=== PATIENT | male | born 1970 | race Caucasian/White ===

== ENCOUNTER 2018-07-04 06:51 | Day surgery (SDC) ==
[2018-07-04] MEDS: BETADINE OPTH PREP OP PRN ×2 (07:15→08:00)
[2018-07-04] MEDS: CYCLOGYL 2% OPTH OP PRN ×3 (07:16→07:26)
[2018-07-04] MEDS ORDERED: LIDOCAINE 1% 20 ML MDV ID STA (07:21)
[2018-07-04] MEDS ORDERED: DEX-MOXI-KETOR OPTH INJ 1/0.5/0.4 MG/ML IO ONE (07:21)
[2018-07-04] MEDS ORDERED: TETRACAINE 0.5% UNIT-DOSE OP PRN (07:21)
[2018-07-04] MEDS ORDERED: BSS WITH EPINEPHRINE OP ONE (07:21)
[2018-07-04] MEDS ORDERED: BRIMONIDINE TARTRATE 0.2% OPTH SOL OP PRN (07:21)
[2018-07-04] MEDS ORDERED: ZOFRAN 4 MG/2 ML IVP ONE (07:21)
[2018-07-04 07:29] VITALS: TEMP 97.7
[2018-07-04] MEDS: LIDOCAINE 1%/PHENYLEPHRINE 1.5% BSS (SURGERY) INTRAOCULA ONE ×2 (08:00→08:11)
[2018-07-04] MEDS ORDERED: SUBLIMAZE ONE (08:07)
[2018-07-04] MEDS ORDERED: ZOFRAN 4 MG/2 ML ONE (08:07)
[2018-07-04] MEDS ORDERED: VERSED ONE (08:07)
[2018-07-06 15:12] VITALS: BP 132/76
== END 2018-07-04 09:15 | disposition home or self-care (01) ==
LOC: SURG 06:51
PROVIDERS: ATTEND Ophthalmology
DX: H25.812 Combined forms of age-related cataract, left eye (principal)